=== PATIENT | male | born 1990 | race Two or more races ===

== ENCOUNTER 2016-09-19 20:59 | Emergency (ER) | payer OTHER ==
[~2016-09-19] VITALS: Ht 172.7 cm; Wt 108.0 kg
[2016-09-19 22:05] VITALS: BP 156/105
== END 2016-09-20 00:04 | disposition home or self-care (01) ==
LOC: ER 22:10
DX: L73.9 Follicular disorder, unspecified (principal); R07.89 Other chest pain
CPT/HCPCS: 93005; 99283; Z7610